=== PATIENT | male | born 1975 | race Caucasian/White ===

== ENCOUNTER 2024-02-20 14:23 | Observation (INO) ==
[2024-02-20 15:06] LABS: Appearance Urine Clear (Clear); Bilirubin Urine Negative (Negative); Blood Urine Negative (Negative); Color Urine Yellow; Glucose Urine UA 2+ (Negative); Ketones Urine Negative (Negative); Leukocyte Esterase Urine Negative (Negative); Nitrite Urine Negative (Negative); Protein Urine Negative (Negative); Specific Gravity Urine 1.008 (1.000-1.030); Urobilinogen Urine Negative (Negative); pH Urine 5.5 (4.5-7.5)
[2024-02-20 15:16] LABS: Basophils # (auto) 0.03 K/uL (0.00-0.20); Basophils % (auto) 0.3 %; Eosinophils # (auto) 0.03 K/uL (0.00-0.50); Eosinophils % (auto) 0.3 %; Hematocrit (blood only) 41.4 % (42.0-52.0); Hemoglobin 14.7 g/dl (14.0-18.0); Immature Granulocytes # (auto) 0.06 K/uL (0.01-0.20); Immature Granulocytes % (auto) 0.6 %; Lymphocytes # (auto) 1.19 K/uL (1.20-3.40); Lymphocytes % (auto) 12.5 %; Mean Corpuscular Hemoglobin 30.7 pg (25.0-34.0); Mean Corpuscular Hgb Conc 35.5 g/dL (32.0-36.0); Mean Corpuscular Volume 86.4 fL (80.0-100.0); Mean Platelet Volume 9.3 fL (9.4-12.4); Monocytes # (auto) 0.42 K/uL (0.11-0.59); Monocytes % (auto) 4.4 %; Neutrophils # (auto) 7.78 K/uL (1.40-6.50); Neutrophils % (auto) 81.9 %; Platelet Count 198 K/uL (130-400); RDW Coefficient of Variation 12.3 % (11.5-14.5); RDW Standard Deviation 38.9 fL (36.4-46.3); Red Blood Count 4.79 M/uL (4.70-6.10); White Blood Count 9.51 K/ul (4.8-10.8)
[2024-02-20 15:23] LABS: Albumin Globulin Ratio 2.5 (0.9-2); Albumin Level 4.7 gm/dl (3.4-5.0); BUN Creatinine Ratio 16.3 (10-20); Bilirubin,Total 0.8 mg/dl (0.2-1.0); Creatinine Clr Calc Pharmacy 70.9 ml/min; Globulin 1.9 gm/dl (2.5-4.0); Potassium 4.6 mmol/L (3.5-5.1); Total Protein 6.6 gm/dl (6.0-8.3)
[2024-02-20 15:29] LABS: Troponin I High Sensitivity 5.9 pg/ml (0-20)
--- NOTE | 2024-02-20 15:55 | Emergency Department Note ---
Impression & Plan Chest pain, Abnormal weight gain ED Provider Note NAME: BHAVYA MORALES AGE: 48 SEX: M : 1975 ARRIVES VIA: Walk-In INFORMANT: Patient, ED PROVIDER(S): Jett Don DO CHIEF COMPLAINT: Weight gain HPI: The patient is a 48-year-old male who presented to the emergency department for an evaluation of weight gain chest pain shortness of breath and abdominal distention. The patient states he has been having symptoms over the course the last several weeks. He has been seen at multiple other facilities and no answer was given. He is scheduled for a follow-up appoint with cardiology but that is not scheduled as of yet. The patient denies having any fever. He denies having any diarrhea or rectal bleeding. He denies having any recent trauma. ROS: See above HPI for pertinent positives & negatives. A total of 10 systems reviewed and were otherwise negative. PAST MEDICAL HISTORY: See Below PAST SURGICAL HISTORY: See Below FAMILY HISTORY: See Below SOCIAL HISTORY: See Below HOME MEDICATIONS: See Below ALLERGIES: See Below VITALS: See Below PHYSICAL EXAMINATION: GENERAL: Patient is awake alert in no acute distress patient is resting comfortably and showing no signs of anxiety EYES: The conjunctivae are clear. The pupils are round and reactive. EARS, NOSE, MOUTH AND THROAT: The nose is without any evidence of any deformity. NECK: The neck is nontender and supple. RESPIRATORY: Normal respiratory effort is noted there is no evidence of wheezing rhonchi or rales CARDIOVASCULAR: Regular rate and rhythm noted there no murmurs rubs or gallops normal S1 normal S2. GASTROINTESTINAL: The diminished soft and nondistended. There is diffuse tenderness to palpation but no guarding rigidity. MUSCULOSKELETAL/EXTREMITIES: There is no evidence of gross deformity full range of motion is noted in the hips and shoulders. SKIN: There is no obvious evidence of any rash. There are no petechiae, pallor or cyanosis noted. NEUROLOGIC: Patient is awake alert and oriented x3 MEDICAL DECISION MAKING: The patient is a 48-year-old male who presented to the emergency department for an evaluation of chest pain as well as weight gain. The patient's had ongoing symptoms for approximately 4 weeks. He has been seen at several emergency departments. He is never had a cardiac workup according to him. He also has been complaining of abdominal distention. I discussed the patient's laboratory and radiographic studies with him. I discussed his condition with the on-call [facility] hospitalist. Given the patient's comorbidities and risk factors he would not be a good candidate for outpatient workup for this chest pain. They have agreed to evaluate the patient in the emergency department for further management and disposition. Triage Nursing notes reviewed. Prior medical records reviewed Vital Signs: reviewed and remarkable for no significant abnormalities Differential diagnosis: Cardiac ischemia, aortic dissection, pulmonary embolism, pneumothorax, pneumonia, pericarditis, myocarditis, esophageal rupture, GERD, cholecystitis, pancreatitis, musculoskeletal, as well as other pathologies. ER treatment provided: See below Diagnostics interpreted by me: ECG: EKG was obtained in the emergency department. My interpretation is normal sinus rhythm at 76 bpm. There is no ectopy. There is no acute ST segment abnormalities noted. No previous tracing was available. Cardiac Monitoring: An order was placed for continuous cardiac monitoring. The monitor shows a rate of 74 bpm with sinus rhythm. Laboratory studies: As stated above and show below. Imaging studies: See below. Radiographic imaging was reviewed by myself Consultation(s): I discussed this case with Dr. Dumont who is on-call for the [facility] hospitalist group. Past Med/Surg History Problem List (Updated 02/20/24 @ 17:51 by Jett Don DO) Abnormal weight gain (Acute) Chest pain (Acute) Medical History (Updated 02/20/24 @ 17:51 by Jett Don DO) Hypertension High cholesterol Diabetes Chronic renal insufficiency Social History Smoking Status: Former smoker Preferred Language: [place] Feels Safe at Home: Yes Allergies Allergies Allergy/AdvReac Type Severity Reaction Status Date / Time adhesive tape Allergy Blister Verified 02/20/24 17:32 losartan Allergy Hives Verified 02/20/24 17:31 meloxicam [From Mobic] Allergy Hives Verified 02/20/24 17:30 metformin Allergy Hives Verified 02/20/24 17:31 Penicillins Allergy Anaphylaxis Verified 02/20/24 17:31 tramadol Allergy Hives Verified 02/20/24 17:31 Home Meds Home Medications Medication Instructions Recorded Confirmed atorvastatin 80 mg tablet 80 mg PO DAILY 02/20/24 bumetanide 1 mg tablet 1 mg PO UD PRN Other 02/20/24 bumetanide 2 mg tablet 2 mg PO BID 02/20/24 bupropion HCl 300 mg 24 hr tablet, 300 mg PO DAILY 02/20/24 extended release buspirone 5 mg tablet 5 mg PO DIRECTED 02/20/24 calcitriol 0.25 mcg capsule 0.25 mcg PO DAILY 02/20/24 cyanocobalamin (vitamin B-12) 1,000 mcg IM DIRECTED 02/20/24 1,000 mcg/mL injection solution doxycycline hyclate 100 mg tablet 100 mg PO BID 02/20/24 insulin degludec 100 unit/mL (3 30 unit subcut BID 02/20/24 mL) subcutaneous pen (Tresiba FlexTouch U-100 insulin) insulin glargine 100 unit/mL (3 50 unit subcut BID 02/20/24 mL) subcutaneous pen (Lantus Solostar U-100 Insulin) insulin lispro 100 unit/mL 1 sliding scale dose subcut TID 02/20/24 subcutaneous pen (Humalog KwikPen (U-100) Insulin) lamotrigine 200 mg tablet 200 mg PO DAILY 02/20/24 lurasidone 20 mg tablet (Latuda) 20 mg PO DAILY 02/20/24 metoprolol succinate 25 mg 25 mg PO DAILY 02/20/24 tablet,extended release 24 hr pantoprazole 40 mg tablet,delayed 40 mg PO DAILY 02/20/24 release prednisone 1 mg tablet 1 mg PO QAM 02/20/24 prednisone 10 mg tablet 10 mg PO QAM 02/20/24 spironolactone 25 mg tablet 25 mg PO DAILY 02/20/24 warfarin 5 mg tablet 5 mg PO DIRECTED 02/20/24 Results & Data (ED) Vital Signs Vital Signs - 24 hr 02/20/24 14:24 02/20/24 14:27 02/20/24 14:34 Temperature 36.7 C Temperature Source Temporal Artery Scan Pulse Rate 79 75 Pulse Rate [Apical] 75 Pulse Strength [Apical] Respiratory Rate 18 19 18 Respiratory Effort / Characteristics Non-Labored Spontaneous Non-Labored Spontaneous Respiratory Depth Normal Respiratory Pattern Regular Blood Pressure 154/81 H Blood Pressure [Left Arm] 133/84 Blood Pressure Mean 105 Blood Pressure Mean [Left Arm] 100 Blood Pressure Position Sitting Blood Pressure Position [Left Arm] Lying Pulse Oximetry 96 96 96 Oxygen Delivery Method Room Air Room Air Room Air Sepsis Recent Fever Within 48 Hours No Sepsis New/Unexplained Change in Mental Status No Sepsis Action Taken by Nursing No Action Required 02/20/24 16:13 02/20/24 16:24 02/20/24 17:32 Temperature Temperature Source Pulse Rate 77 Pulse Rate [Apical] 75 74 Pulse Strength [Apical] Normal Respiratory Rate 18 18 Respiratory Effort / Characteristics Non-Labored Spontaneous Non-Labored Spontaneous Respiratory Depth Normal Respiratory Pattern Regular Blood Pressure Blood Pressure [Left Arm] 128/76 144/76 H Blood Pressure Mean Blood Pressure Mean [Left Arm] 93 98 Blood Pressure Position Blood Pressure Position [Left Arm] Lying Sitting Pulse Oximetry 98 98 Oxygen Delivery Method Room Air Room Air Sepsis Recent Fever Within 48 Hours Sepsis New/Unexplained Change in Mental Status Sepsis Action Taken by [facility] Medications Current Medication List: was personally reviewed by me Laboratory Data Attestation: I reviewed the patient's lab results. 02/20/24 14:45 02/20/24 14:45 Lab Results 02/20/24 Range/Units 14:45 WBC 9.51 (4.8-10.8) K/ul RBC 4.79 (4.70-6.10) M/uL Hgb 14.7 (14.0-18.0) g/dl Hct 41.4 L (42.0-52.0) % MCV 86.4 (80.0-100.0) fL MCH 30.7 (25.0-34.0) pg MCHC 35.5 (32.0-36.0) g/dL RDW Std Deviation 38.9 (36.4-46.3) fL RDW Coeff of Juanjo 12.3 (11.5-14.5) % Plt Count 198 (130-400) K/uL MPV 9.3 L (9.4-12.4) fL Immature Gran % (Auto) 0.6 % Neut % (Auto) 81.9 % Lymph % (Auto) 12.5 % [place] % (Auto) 4.4 % Eos % (Auto) 0.3 % Baso % (Auto) 0.3 % Neut # (Auto) 7.78 H (1.40-6.50) K/uL Lymph # (Auto) 1.19 L (1.20-3.40) K/uL [place] # (Auto) 0.42 (0.11-0.59) K/uL Eos # (Auto) 0.03 (0.00-0.50) K/uL Baso # (Auto) 0.03 (0.00-0.20) K/uL Immature Gran # (Auto) 0.06 (0.01-0.20) K/uL Sodium 137 (136-145) mmol/L Potassium 4.6 (3.5-5.1) mmol/L Chloride 102 (98-107) mmol/L Carbon Dioxide 29 (21-32) mmol/L Anion Gap 6 (3-11) BUN 29 H (6-23) mg/dl Creatinine 1.78 H (0.6-1.4) mg/dl Est Cr Clr Drug Dosing 70.9 ml/min eGFR 46.48 BUN/Creatinine Ratio 16.3 (10-20) Glucose 299 H (70-99(Fasting)) mg/dl Calcium 10.0 (8.6-10.3) mg/dl Total Bilirubin 0.8 (0.2-1.0) mg/dl AST 15 (13-39) U/L ALT 24 (7-52) U/L Alkaline Phosphatase 57 (34-104) U/L Troponin I High Sens 5.9 (0-20) pg/ml Total Protein 6.6 (6.0-8.3) gm/dl Albumin 4.7 (3.4-5.0) gm/dl Globulin 1.9 L (2.5-4.0) gm/dl Albumin/Globulin Ratio 2.5 H (0.9-2) Lipase 31 (11-82) U/L Urine Color Yellow Urine Appearance Clear (Clear) Urine pH 5.5 (4.5-7.5) Ur Specific [place] 1.008 (1.000-1.030) Urine Protein Negative (Negative) Urine Glucose (UA) 2+ H (Negative) Urine Ketones Negative (Negative) Urine Blood Negative (Negative) Urine Nitrite Negative (Negative) Urine Bilirubin Negative (Negative) Urine Urobilinogen Negative (Negative) Ur Leukocyte Esterase Negative (Negative) Administered Medications Discontinued Medications Aspirin (Aspirin Chew 324 Mg) 324 mg PO NOW STA Stop: 02/20/24 17:21 Last Admin: 02/20/24 17:30 Dose: 324 mg Documented By: MERCEDES Imaging Data Attestation: I personally reviewed and interpreted this imaging study as follows: My Impression: CT of the abdomen and pelvis as well as CT of the chest were obtained. My interpretation is no free air or free fluid or definite infiltrate, final report below. 1 view chest x-ray was obtained in the emergency department. My interpretation is no free air or definite infiltrate, final report below. Radiologist's Impression: Chest X-Ray 02/20/24 14:34 EXAM: Radiograph of the Chest 1 View INDICATION: Chest pain. TECHNIQUE: Frontal view of the chest. COMPARISON: No relevant prior studies available. FINDINGS: Lungs and pleural spaces: No consolidation or pulmonary edema. No pleural effusion or pneumothorax. Heart: Shape and configuration within normal limits allowing for technique. Mediastinum: Normal contour. Bones/joints: No fracture, erosion or dislocation. Soft tissues: No abnormality noted. No radiopaque foreign body noted. Upper abdomen: No abnormality noted. IMPRESSION: No abnormality noted. ACT 112: Negative or not required by law. Electronically signed by Brittni James 02-20-2024 3:47 PM Abdomen/Pelvis CT 02/20/24 15:45 EXAM: CT abd pelvis wo con CLINICAL HISTORY: weight gain and pain TECHNIQUE: Non-contrast CT of the abdomen was performed, with the following protocol: axial images and reconstructed coronal and sagittal images were obtained. One of the following dose reduction techniques was utilized for this exam.Automated exposure control, adjustment of the mA and/or kV according to patient size, and use of iterative reconstruction. COMPARISON: No prior studies are available for comparison. FINDINGS: Liver: Normal in size, shape, and density. No focal lesions, cysts, or masses were identified. No evidence of hepatic steatosis or cirrhosis. Gallbladder and Biliary System: The gallbladder is normal in size and shape. No wall thickening, pericholecystic fluid, or gallstones were identified. Pancreas: Pancreatic head, body, and tail are visualized and appear normal in size and density. No pancreatic masses, cysts, or calcifications were noted. The main pancreatic duct is normal size and diameter without dilatation. Spleen: Normal in size, shape, and density. No splenic lesions or masses were identified. Kidneys and Adrenal Glands: Both kidneys are normal in size, shape, and position. Cortical thickness is within normal limits. No renal calculi or hydronephrosis. Adrenal glands are unremarkable. Appendix: The appendix is normal in size without eileen appendiceal fat stranding and without an appendicolith. No evidence of appendiceal abscess or perforation. Peritoneal and Retroperitoneal Structures: No free fluid or abnormal fluid collections were identified within the abdomen or pelvis. No lymphadenopathy was noted. Pelvis : Urinary Bladder: Normal in contour and wall thickness. No intraluminal lesions. Normal appearance of the prostate. No pelvic lymphadenopathy. Fecal-loaded colon. Unremarkable unprepared bowel loops. Bone : Degenerative changes of the spine. First-degree spondylolisthesis of L5 over S1 vertebrae with fracture of the related pars interarticularis. IMPRESSION: Overall, the CT abdomen and pelvis demonstrate normal findings without evidence of acute intra-abdominal pathology. Electronically signed by Yary Sanchez 02-20-2024 4:[address] 02/20/24 15:45 EXAM: CT chest diagnostic wo con CLINICAL HISTORY: weight gain and pain TECHNIQUE: Contiguous axial CT images of the chest were acquired without administration of intravenous contrast. Coronal and sagittal reconstructions were obtained. One of the following dose reduction techniques were utilized for this exam: Automated exposure control, adjustment of the mA and/or kV according to patient size, use of iterative reconstruction. COMPARISON: None. FINDINGS: Lungs: A lingular thin atelectatic band is seen. The lung parenchyma is clear with no evidence of consolidation, collapse, or focal lesions. No pulmonary nodules or masses are identified. No evidence of interstitial lung disease or emphysema. No pleural effusion or pleural thickening. Mediastinum: The mediastinum is normal in size and contour. No mediastinal mass or abnormal lymphadenopathy. The heart size is within normal limits. Coronary atherosclerotic changes were noted. Hilar Structures: The hilar structures appear normal without enlargement or abnormality. Trachea and Main Bronchi: The trachea and main bronchi are patent without evidence of obstruction or abnormality. Chest Wall: The chest wall is unremarkable with no evidence of soft tissue or bony abnormalities. Upper Abdomen: Visualized portions of the liver, spleen, adrenal glands, and kidneys are unremarkable. Bones: Moderate spondylosis of the thoracic spine is seen. Visualized osseous structures are normal, with no evidence of fracture or lytic/sclerotic lesions. IMPRESSION: 1. No acute cardiopulmonary abnormalities. 2. A lingular atelectatic band. 3. Coronary atherosclerotic changes. 4. Moderate spondylosis of the thoracic spine. Electronically signed by Yary Sanchez 02-20-2024 4:39 PM Discharge Plan Visit Data Chief Complaint: Swelling/Edema to Extremity Stated Complaint: BLOATED/ABD SWELLING, SOB, HEADACHE, 40LBS/4 WKS ED Provider: Jett Don Discharge Problem: Chest pain, Abnormal weight gain Patient Disposition: Being Evaluated by Hospitalist Forms Stand Alone Forms: My [facility] Prescriptions Prescriptions: No Action buspirone 5 mg tablet 5 mg PO DIRECTED atorvastatin 80 mg tablet 80 mg PO DAILY prednisone 10 mg tablet 10 mg PO QAM Rx Instructions: take with 1 mg for total dose of 11 mg daily lamotrigine 200 mg tablet 200 mg PO DAILY spironolactone 25 mg tablet 25 mg PO DAILY prednisone 1 mg tablet 1 mg PO QAM Rx Instructions: take with 10 mg for total dose of 11 mg daily pantoprazole 40 mg tablet,delayed release (DR/EC) 40 mg PO DAILY cyanocobalamin (vitamin B-12) 1,000 mcg/mL solution 1,000 mcg IM DIRECTED warfarin 5 mg tablet 5 mg PO DIRECTED metoprolol succinate 25 mg tablet extended release 24 hr 25 mg PO DAILY doxycycline hyclate 100 mg tablet 100 mg PO BID calcitriol 0.25 mcg capsule 0.25 mcg PO DAILY insulin lispro [Humalog KwikPen Insulin] 100 unit/mL insulin pen 1 sliding scale dose SUBCUT TID bupropion HCl 300 mg tablet extended release 24 hr 300 mg PO DAILY insulin glargine [Lantus Solostar U-100 Insulin] 100 unit/mL (3 mL) insulin pen 50 unit subcut BID lurasidone [Latuda] 20 mg tablet 20 mg PO DAILY insulin degludec [Tresiba FlexTouch U-100] 100 unit/mL (3 mL) insulin pen 30 unit SUBCUT BID bumetanide 2 mg tablet 2 mg PO BID bumetanide 1 mg tablet 1 mg PO UD PRN (Reason: Other) Rx Instructions: Take 1 tab po daily if needed along with 2 mg for total dose of 3 mg for 3 days Referrals Referrals: Ryann Wallace PA-C [Primary Care Provider] - Discharge Problem: Chest pain Qualifiers: Chest pain type: unspecified Qualified Code(s): R07.9 - Chest pain, unspecified
--- NOTE | 2024-02-20 16:39 | CT Scan Report ---
EXAM: CT abd pelvis wo con CLINICAL HISTORY: weight gain and pain TECHNIQUE: Non-contrast CT of the abdomen was performed, with the following protocol: axial images and reconstructed coronal and sagittal images were obtained. One of the following dose reduction techniques was utilized for this exam.Automated exposure control, adjustment of the mA and/or kV according to patient size, and use of iterative reconstruction. COMPARISON: No prior studies are available for comparison. FINDINGS: Liver: Normal in size, shape, and density. No focal lesions, cysts, or masses were identified. No evidence of hepatic steatosis or cirrhosis. Gallbladder and Biliary System: The gallbladder is normal in size and shape. No wall thickening, pericholecystic fluid, or gallstones were identified. Pancreas: Pancreatic head, body, and tail are visualized and appear normal in size and density. No pancreatic masses, cysts, or calcifications were noted. The main pancreatic duct is normal size and diameter without dilatation. Spleen: Normal in size, shape, and density. No splenic lesions or masses were identified. Kidneys and Adrenal Glands: Both kidneys are normal in size, shape, and position. Cortical thickness is within normal limits. No renal calculi or hydronephrosis. Adrenal glands are unremarkable. Appendix: The appendix is normal in size without eileen appendiceal fat stranding and without an appendicolith. No evidence of appendiceal abscess or perforation. Peritoneal and Retroperitoneal Structures: No free fluid or abnormal fluid collections were identified within the abdomen or pelvis. No lymphadenopathy was noted. Pelvis : Urinary Bladder: Normal in contour and wall thickness. No intraluminal lesions. Normal appearance of the prostate. No pelvic lymphadenopathy. Fecal-loaded colon. Unremarkable unprepared bowel loops. Bone : Degenerative changes of the spine. First-degree spondylolisthesis of L5 over S1 vertebrae with fracture of the related pars interarticularis. IMPRESSION: Overall, the CT abdomen and pelvis demonstrate normal findings without evidence of acute intra-abdominal pathology. Electronically signed by Yary Sanchez 02-20-2024 4:39 PM
--- NOTE | 2024-02-20 16:40 | CT Scan Report ---
EXAM: CT chest diagnostic wo con CLINICAL HISTORY: weight gain and pain TECHNIQUE: Contiguous axial CT images of the chest were acquired without administration of intravenous contrast. Coronal and sagittal reconstructions were obtained. One of the following dose reduction techniques were utilized for this exam: Automated exposure control, adjustment of the mA and/or kV according to patient size, use of iterative reconstruction. COMPARISON: None. FINDINGS: Lungs: A lingular thin atelectatic band is seen. The lung parenchyma is clear with no evidence of consolidation, collapse, or focal lesions. No pulmonary nodules or masses are identified. No evidence of interstitial lung disease or emphysema. No pleural effusion or pleural thickening. Mediastinum: The mediastinum is normal in size and contour. No mediastinal mass or abnormal lymphadenopathy. The heart size is within normal limits. Coronary atherosclerotic changes were noted. Hilar Structures: The hilar structures appear normal without enlargement or abnormality. Trachea and Main Bronchi: The trachea and main bronchi are patent without evidence of obstruction or abnormality. Chest Wall: The chest wall is unremarkable with no evidence of soft tissue or bony abnormalities. Upper Abdomen: Visualized portions of the liver, spleen, adrenal glands, and kidneys are unremarkable. Bones: Moderate spondylosis of the thoracic spine is seen. Visualized osseous structures are normal, with no evidence of fracture or lytic/sclerotic lesions. IMPRESSION: 1. No acute cardiopulmonary abnormalities. 2. A lingular atelectatic band. 3. Coronary atherosclerotic changes. 4. Moderate spondylosis of the thoracic spine. Electronically signed by Yary Sanchez 02-20-2024 4:39 PM
--- NOTE | 2024-02-20 17:14 | Electrocardiogram Report ---
Test Reason : Blood Pressure : */* mmHG Vent. Rate : 76 BPM Atrial Rate : 76 BPM P-R Int : 182 ms QRS Dur : 80 ms QT Int : 360 ms P-R-T Axes : 21 -8 49 degrees QTcB Int : 405 ms Normal sinus rhythm Normal ECG No previous ECGs available Confirmed by Patrick Altamirano ([id number]) on 02/20/2024 5:14:46 PM Referred By: REFERRED SELF Confirmed By: Patrick Altamirano
[2024-02-20] MEDS: ASPIRIN CHEW 324 MG PO STA (17:30)
[2024-02-20] MEDS ORDERED: PHARMACY GLYCEMIC MGMT CONSULT PRN (18:11)
[2024-02-20] MEDS ORDERED: CARBOHYDRATES FOR HYPOGLYCEMIA PO PRN (18:13)
[2024-02-20] MEDS ORDERED: GLUCAGON FOR INJ 1 MG VIAL SQ PRN (18:13)
[2024-02-20] MEDS ORDERED: DEXTROSE 50% 50 ML SYRINGE IV PRN (18:13)
[2024-02-20] MEDS ORDERED: GLUCOSE 10 TAB/TUBE PO PRN (18:13)
[2024-02-20] MEDS ORDERED: GLUCOSE 40% GEL 15 GM TUBE PO PRN (18:13)
--- NOTE | 2024-02-20 18:19 | History & Physical Report ---
Date of Service February 20, 2024 Assessment & Plan (1) Chest pain: (2) Hypertension: (3) Hyperlipidemia: (4) Insulin dependent type 2 diabetes mellitus: (5) CKD stage 3b, GFR 30-44 ml/min: (6) Rheumatoid arthritis: (7) Lupus anticoagulant disorder: (8) Morbid obesity with BMI of 40.0-44.9, adult: (9) Anxiety and depression: (10) Left foot drop: Plan 48-year-old male with past medical history of insulin-dependent type 2 diabetes mellitus, morbid obesity with BMI of 41, CKD stage III, hypertension, hyperlipidemia anxiety and depression, rheumatoid arthritis on prednisone, lupus anticoagulant with history of DVT on warfarin (as per patient he has failed apixaban and Xarelto in the past) who was brought in by his friend from [facility] for on and off chest pain for approximately 5 weeks mainly on exertion. #Chest pain #Essential hypertension #Hyperlipidemia CT chest did not show any evidence of fluid or infiltrate or consolidation Chest x-ray was unremarkable Admit to [facility] telemetry for observation Initial troponin was negative, admission EKG shows no ischemic changes with normal sinus rhythm Lipase is 31 BNP is 34 Telemetry monitoring Check 2D echo Check Lexiscan stress test Check bio fire since patient is reporting a chronic cough for 5 weeks which is dry in nature Patient is currently chest pain-free Continue metoprolol Continue statin Check lipid panel in a.m. Serial troponin #Insulin-dependent type 2 diabetes mellitus #Morbid obesity BMI is 41.1 Lifestyle counseling regarding diet, exercise and weight loss provided Patient is requesting dietitian consult: Dietitian consult placed Pharmacy consult for glycemic management Check A1c Monitor glycemic control #CKD stage IIIb Outpatient auto tech Dr. Eng Monitor renal function electrolytes Avoid nephrotoxic agents including NSAIDs #Rheumatoid arthritis #History of lupus anticoagulant with history of DVT Outpatient chick grader is Dr. Castro in [place], [place] Patient tells me he was on Humira in the past and failed Humira and plan for rheumatology is to start him on Enbrel soon Continue on CellCept and prednisone 11 mg daily Continue PPI while patient is on steroids Continue warfarin 5 mg daily: Monitor INR #Chronic left foot drop PT consult to help with ambulation: Patient states he has been struggling with ambulation on and off CODE STATUS: Discussed with patient, full code DVT prophylaxis: Patient on warfarin Care plan discussed with patient and patient's friend and her son updated at bedside with patient's permission. Patient requested for them to be in the room while I saw him and discussed his care plan. History of Present Illness Chief Complaint: Chest pain Primary Care Provider: Ryann Wallace PA-C 48-year-old male with past medical history of insulin-dependent type 2 diabetes mellitus, morbid obesity with BMI of 41, CKD stage III, hypertension, hyperlipidemia anxiety and depression, rheumatoid arthritis on prednisone, lupus anticoagulant with history of DVT on warfarin (as per patient he has failed apixaban and Xarelto in the past) who was brought in by his friend from [facility] for on and off chest pain for approximately 5 weeks. Patient states he is not getting good care in his local area and his friend drove him 85 miles to come here. 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 Patient states he is compliant with his medications. Medications were reviewed with the patient who has a list with him. He denies any headache, dizziness, lightheadedness, nausea, vomiting, diarrhea, abdominal pain, constipation issues. He has abdominal wall tenderness from coughing. He denies any urinary symptoms including dysuria. He denies any fever, chills. Patient reports a 40 pound weight gain in about a month. He admits to not watching what he eats. Patient tells me he is very compliant with his warfarin and his last INR few days ago was 2.9. Patient does admit that his A1c has been greater than 11 ED course: He had an EKG done which showed normal sinus rhythm, no ischemic changes noted. Troponin was 5.9. Creatinine of 1.78. Glucose of 299, urine analysis was negative. Patient had a CT of the chest which did not show any acute cardiopulmonary pathology. He also had a CT abdomen pelvis which was nega tive. Chest x-ray also was negative Patient was given aspirin 324 mg x 1 dose in ED Hospitalist service was called for admission for chest pain Social history: Patient lives by himself. He has a chronic left foot drop and he ambulates sometimes with a cane and has a brace on his left foot. He quit tobacco smoking in 2014. He drinks about 2 drinks of alcohol once a year. He denies any illegal or IV drug use. He is currently on disability. 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 Patient states his mother at the age of 67 from complications of coronary artery disease and also had a seizure disorder. Home medications: Reviewed with patient and are as follows Aspirin 81 mg p.o. daily Atorvastatin 40 mg p.o. daily Bumex 2 mg p.o. daily Bupropion XL 300 mg p.o. daily Cholecalciferol 5000 units p.o. daily Humalog subcutaneous 3 times a day before meals for 6 sliding scale Insulin glargine 50 units subcutaneous twice daily Lamictal 100 mg p.o. daily Metoprolol tartrate 100 mg p.o. daily CellCept 1 tablet p.o. daily Protonix 40 mg p.o. daily Prednisone 11 mg p.o. daily Warfarin 5 mg p.o. daily Allergies reviewed with patient: Tramadol, metformin, amlodipine, penicillin V, Mobic, Levaquin, tape, losartan Allergies Allergy/AdvReac Type Severity Reaction Status Date / Time adhesive tape Allergy Blister Verified 02/20/24 17:32 losartan Allergy Hives Verified 02/20/24 17:31 meloxicam [From Mobic] Allergy Hives Verified 02/20/24 17:30 metformin Allergy Hives Verified 02/20/24 17:31 Penicillins Allergy Anaphylaxis Verified 02/20/24 17:31 tramadol Allergy Hives Verified 02/20/24 17:31 Home Medications Medication Instructions Recorded Confirmed Type atorvastatin 80 mg tablet 80 mg PO DAILY 02/20/24 History bumetanide 1 mg tablet 1 mg PO UD PRN Other 02/20/24 History bumetanide 2 mg tablet 2 mg PO BID 02/20/24 History bupropion HCl 300 mg 24 hr tablet, 300 mg PO DAILY 02/20/24 History extended release buspirone 5 mg tablet 5 mg PO DIRECTED 02/20/24 History calcitriol 0.25 mcg capsule 0.25 mcg PO DAILY 02/20/24 History cyanocobalamin (vitamin B-12) 1,000 mcg IM DIRECTED 02/20/24 History 1,000 mcg/mL injection solution doxycycline hyclate 100 mg tablet 100 mg PO BID 02/20/24 History insulin degludec 100 unit/mL (3 30 unit subcut BID 02/20/24 History mL) subcutaneous pen (Tresiba FlexTouch U-100 insulin) insulin glargine 100 unit/mL (3 50 unit subcut BID 02/20/24 History mL) subcutaneous pen (Lantus Solostar U-100 Insulin) insulin lispro 100 unit/mL 1 sliding scale dose subcut TID 02/20/24 History subcutaneous pen (Humalog KwikPen (U-100) Insulin) lamotrigine 200 mg tablet 200 mg PO DAILY 02/20/24 History lurasidone 20 mg tablet (Latuda) 20 mg PO DAILY 02/20/24 History metoprolol succinate 25 mg 25 mg PO DAILY 02/20/24 History tablet,extended release 24 hr pantoprazole 40 mg tablet,delayed 40 mg PO DAILY 02/20/24 History release prednisone 1 mg tablet 1 mg PO QAM 02/20/24 History prednisone 10 mg tablet 10 mg PO QAM 02/20/24 History spironolactone 25 mg tablet 25 mg PO DAILY 02/20/24 History warfarin 5 mg tablet 5 mg PO DIRECTED 02/20/24 History Past Med/Surg History Problem List (Updated 02/20/24 @ 18:56 by Alvin Dumont MD) Left foot drop Hypertension Anxiety and depression Morbid obesity with BMI of 40.0-44.9, adult Lupus anticoagulant disorder Rheumatoid arthritis CKD stage 3b, GFR 30-44 ml/min Insulin dependent type 2 diabetes mellitus Hyperlipidemia Abnormal weight gain (Acute) Chest pain (Acute) Medical History (Updated 02/20/24 @ 18:56 by Alvin Dumont MD) High cholesterol Diabetes Chronic renal insufficiency Social History Smoking Status: Former smoker Preferred Language: Slovak Feels Safe at Home: Yes Review of Systems Review of Systems: All 12 systems were reviewed and are negative or stated in HPI Physical Exam Physical Exam: General: No acute distress, talking in full sentences Psych: Awake and alert, oriented to place person and time HEENT: Anicteric sclera, moist oral mucosa CVS: Regular rate and rhythm, no murmurs audible Lungs: Bilateral air entry, no wheezing noted, no use of accessory muscles noted Abdomen: Soft, nontender, obese, no rebound, no guarding Ext: No lower extremity edema, no calf tenderness, bilateral lower extremity chronic skin changes noted Neuro: No focal motor deficits noted Results & Data Results & Data Vital Signs (Past 12 Hours) Vital Signs Temp Pulse Pulse Resp BP BP Pulse Ox 02/20/24 17:32 74 18 144/76 H 98 02/20/24 16:24 75 18 128/76 98 02/20/24 16:13 77 02/20/24 14:34 75 18 96 02/20/24 14:27 36.7 C 79 19 154/81 H 96 02/20/24 14:24 75 18 133/84 96 O2 Del Method 02/20/24 17:32 Room Air 02/20/24 16:24 Room Air 02/20/24 16:13 02/20/24 14:34 Room Air 02/20/24 14:27 Room Air 02/20/24 14:24 Room Air Laboratory Results Laboratory Results - last 24 hr 02/20/24 14:45 WBC 9.51 RBC 4.79 Hgb 14.7 Hct 41.4 L MCV 86.4 MCH 30.7 MCHC 35.5 RDW Std Deviation 38.9 RDW Coeff of Juanjo 12.3 Plt Count 198 MPV 9.3 L Immature Gran % (Auto) 0.6 Neut % (Auto) 81.9 Lymph % (Auto) 12.5 Mathews % (Auto) 4.4 Eos % (Auto) 0.3 Baso % (Auto) 0.3 Neut # (Auto) 7.78 H Lymph # (Auto) 1.19 L Mathews # (Auto) 0.42 Eos # (Auto) 0.03 Baso # (Auto) 0.03 Immature Gran # (Auto) 0.06 Sodium 137 Potassium 4.6 Chloride 102 Carbon Dioxide 29 Anion Gap 6 BUN 29 H Creatinine 1.78 H Est Cr Clr Drug Dosing 70.9 eGFR 46.48 BUN/Creatinine Ratio 16.3 Glucose 299 H Calcium 10.0 Total Bilirubin 0.8 AST 15 ALT 24 Alkaline Phosphatase 57 Troponin I High Sens 5.9 B-Natriuretic Peptide 34 Total Protein 6.6 Albumin 4.7 Globulin 1.9 L Albumin/Globulin Ratio 2.5 H Lipase 31 Urine Color Yellow Urine Appearance Clear Urine pH 5.5 Ur Specific [place] 1.008 Urine Protein Negative Urine Glucose (UA) 2+ H Urine Ketones Negative Urine Blood Negative Urine Nitrite Negative Urine Bilirubin Negative Urine Urobilinogen Negative Ur Leukocyte Esterase Negative Diagnostic Findings Chest X-Ray 02/20/24 14:34 EXAM: Radiograph of the Chest 1 View INDICATION: Chest pain. TECHNIQUE: Frontal view of the chest. COMPARISON: No relevant prior studies available. FINDINGS: Lungs and pleural spaces: No consolidation or pulmonary edema. No pleural effusion or pneumothorax. Heart: Shape and configuration within normal limits allowing for technique. Mediastinum: Normal contour. Bones/joints: No fracture, erosion or dislocation. Soft tissues: No abnormality noted. No radiopaque foreign body noted. Upper abdomen: No abnormality noted. IMPRESSION: No abnormality noted. ACT 112: Negative or not required by law. Electronically signed by Brittni James 02-20-2024 3:47 PM Abdomen/Pelvis CT 02/20/24 15:45 EXAM: CT abd pelvis wo con CLINICAL HISTORY: weight gain and pain TECHNIQUE: Non-contrast CT of the abdomen was performed, with the following protocol: axial images and reconstructed coronal and sagittal images were obtained. One of the following dose reduction techniques was utilized for this exam.Automated exposure control, adjustment of the mA and/or kV according to patient size, and use of iterative reconstruction. COMPARISON: No prior studies are available for comparison. FINDINGS: Liver: Normal in size, shape, and density. No focal lesions, cysts, or masses were identified. No evidence of hepatic steatosis or cirrhosis. Gallbladder and Biliary System: The gallbladder is normal in size and shape. No wall thickening, pericholecystic fluid, or gallstones were identified. Pancreas: Pancreatic head, body, and tail are visualized and appear normal in size and density. No pancreatic masses, cysts, or calcifications were noted. The main pancreatic duct is normal size and diameter without dilatation. Spleen: Normal in size, shape, and density. No splenic lesions or masses were identified. Kidneys and Adrenal Glands: Both kidneys are normal in size, shape, and position. Cortical thickness is within normal limits. No renal calculi or hydronephrosis. Adrenal glands are unremarkable. Appendix: The appendix is normal in size without eileen appendiceal fat stranding and without an appendicolith. No evidence of appendiceal abscess or perforation. Peritoneal and Retroperitoneal Structures: No free fluid or abnormal fluid collections were identified within the abdomen or pelvis. No lymphadenopathy was noted. Pelvis : Urinary Bladder: Normal in contour and wall thickness. No intraluminal lesions. Normal appearance of the prostate. No pelvic lymphadenopathy. Fecal-loaded colon. Unremarkable unprepared bowel loops. Bone : Degenerative changes of the spine. First-degree spondylolisthesis of L5 over S1 vertebrae with fracture of the related pars interarticularis. IMPRESSION: Overall, the CT abdomen and pelvis demonstrate normal findings without evidence of acute intra-abdominal pathology. Electronically signed by Yary Sanchez 02-20-2024 4:[address] 02/20/24 15:45 EXAM: CT chest diagnostic wo con CLINICAL HISTORY: weight gain and pain TECHNIQUE: Contiguous axial CT images of the chest were acquired without administration of intravenous contrast. Coronal and sagittal reconstructions were obtained. One of the following dose reduction techniques were utilized for this exam: Automated exposure control, adjustment of the mA and/or kV according to patient size, use of iterative reconstruction. COMPARISON: None. FINDINGS: Lungs: A lingular thin atelectatic band is seen. The lung parenchyma is clear with no evidence of consolidation, collapse, or focal lesions. No pulmonary nodules or masses are identified. No evidence of interstitial lung disease or emphysema. No pleural effusion or pleural thickening. Mediastinum: The mediastinum is normal in size and contour. No mediastinal mass or abnormal lymphadenopathy. The heart size is within normal limits. Coronary atherosclerotic changes were noted. Hilar Structures: The hilar structures appear normal without enlargement or abnormality. Trachea and Main Bronchi: The trachea and main bronchi are patent without evidence of obstruction or abnormality. Chest Wall: The chest wall is unremarkable with no evidence of soft tissue or bony abnormalities. Upper Abdomen: Visualized portions of the liver, spleen, adrenal glands, and kidneys are unremarkable. Bones: Moderate spondylosis of the thoracic spine is seen. Visualized osseous structures are normal, with no evidence of fracture or lytic/sclerotic lesions. IMPRESSION: 1. No acute cardiopulmonary abnormalities. 2. A lingular atelectatic band. 3. Coronary atherosclerotic changes. 4. Moderate spondylosis of the thoracic spine. Electronically signed by Yary Sanchez 02-20-2024 4:39 PM ECG Additional Comments: EKG reviewed: Normal sinus rhythm at 71 bpm, no ischemic changes noted PG Care Time/CCT Total # of Minutes Spent Total Time Spent with Patient: Total time spent is greater than 50% in coordination of care (as documented) at patient's floor/unit and/or counseling patient: Coding Level of Care Code 99509 INT INP/OBS CARE 3/75MIN Diagnoses Chest pain R07.9 Chest pain type: unspecified Hypertension I10 Hyperlipidemia E78.5 Insulin dependent type 2 diabetes mellitus E11.9; Z79.4 CKD stage 3b, GFR 30-44 ml/min N18.32 Rheumatoid arthritis M06.9 Lupus anticoagulant disorder D68.62 Morbid obesity with BMI of 40.0-44.9, adult E66.01; Z68.41 Anxiety and depression F41.9; F32.A Left foot drop M21.372 (1) Chest pain Chest pain type: unspecified Qualified Code(s): R07.9 - Chest pain, unspecified
[2024-02-20] MEDS: INSULIN ASPART PER UNIT CHARGE SC SCH (18:56)
[2024-02-20 19:21] LABS: INR 1.2 (0.9-1.1); Prothrombin Time 13.1 Seconds (9.0-12.0)
[2024-02-20 19:26] LABS: Adenovirus PCR Not Detected (NotDetected); Bordetella parapertussis PCR Not Detected (NotDetected); Bordetella pertussis PCR Not Detected (NotDetected); Chlamydia pneumoniae PCR Not Detected (NotDetected); Coronavirus 229E PCR Not Detected (NotDetected); Coronavirus CoV-2 (COVID19)PCR Not Detected (NotDetected); Coronavirus HKU1 PCR Not Detected (NotDetected); Coronavirus NL63 PCR Not Detected (NotDetected); Coronavirus OC43PCR Not Detected (NotDetected); Human Metapneumovirus PCR Not Detected (NotDetected); Influenza A PCR Not Detected (NotDetected); Influenza B PCR Not Detected (NotDetected); Mycoplasma pneumoniae PCR Not Detected (NotDetected); Parainfluenza Virus 1 PCR Not Detected (NotDetected); Parainfluenza Virus 2 PCR Not Detected (NotDetected); Parainfluenza Virus 3 PCR Not Detected (NotDetected); Parainfluenza Virus 4 PCR Not Detected (NotDetected); Respiratory Syncytial VirusPCR Not Detected (NotDetected); Rhinovirus/Enterovirus PCR Not Detected (NotDetected)
[2024-02-20] MEDS ORDERED: ACETAMINOPHEN 325 MG TAB PO PRN (20:33)
[2024-02-20] MEDS ORDERED: POLYETHYLENE (MIRALAX) 17 GM PACK PO PRN (20:33)
[2024-02-20] MEDS: LANTUS PER UNIT CHARGE SQ SCH (20:52)
[2024-02-21] MEDS: INSULIN ASPART PER UNIT CHARGE SC SCH (02:45)
[2024-02-21] MEDS: PANTOprazole 40 MG TAB PO SCH (06:25)
[2024-02-21 06:27] LABS: Hematocrit (blood only) 37.8 % (42.0-52.0); Hemoglobin 13.2 g/dl (14.0-18.0); Mean Corpuscular Hemoglobin 30.3 pg (25.0-34.0); Mean Corpuscular Hgb Conc 34.9 g/dL (32.0-36.0); Mean Corpuscular Volume 86.7 fL (80.0-100.0); Platelet Count 159 K/uL (130-400); RDW Coefficient of Variation 12.5 % (11.5-14.5); RDW Standard Deviation 39.6 fL (36.4-46.3); Red Blood Count 4.36 M/uL (4.70-6.10); White Blood Count 7.54 K/ul (4.8-10.8)
[2024-02-21 06:44] LABS: BUN Creatinine Ratio 18.8 (10-20); Calcium 8.7 mg/dl (8.6-10.3); Chol HDL Ratio 2.9 (0-5); Creatinine Clr Calc Pharmacy 84.4 ml/min; Potassium 3.9 mmol/L (3.5-5.1)
[2024-02-21 06:53] LABS: INR 1.3 (0.9-1.1); Prothrombin Time 13.4 Seconds (9.0-12.0)
[2024-02-21 08:08] LABS: Estimated Average Glucose 243 mg/dl; Hemoglobin A1C 10.1 % (4.5-5.6)
[2024-02-21] MEDS: METOPROLOL SUCC 50MG EXT REL TAB PO SCH (09:19)
[2024-02-21] MEDS: ATORVASTATIN 40 MG TAB PO SCH (09:19)
[2024-02-21] MEDS: ASPIRIN 81 MG ECTAB PO SCH (09:19)
[2024-02-21] MEDS: buPROPion XL 300 MG TABCR PO SCH (09:19)
[2024-02-21] MEDS: lamoTRIgine 100 MG TAB PO SCH (09:19)
[2024-02-21] MEDS: MYCOPHENOLATE MOFETIL 250 MG CAP PO SCH (09:20)
[2024-02-21] MEDS: predniSONE 10 MG TABLET PO SCH (09:20)
[2024-02-21] MEDS: predniSONE 1 MG TAB PO SCH (09:20)
--- NOTE | 2024-02-21 14:46 | Pharmacy Report ---
Pharmacy Glycemic Short Note 2 - Date of Service February 21, 2024 - Glycemic Short BSG Results (Last 24 hours): 02/20/24 02/20/24 02/20/24 14:45 18:22 20:42 Glucose 299 H POC Glucose 216 H 203 H 02/21/24 02/21/24 02/21/24 06:03 08:53 14:34 Glucose 121 H POC Glucose 106 H 129 H OUTPATIENT ANTIDIABETIC REGIMEN: * Lantus 50 units SC BID * Humalog 6-12 units SC TIDM HbA1c: 10.1% (02/21/24) ASSESSMENT: * RY is a 48 year old male who presented to ED on 02/19 w/ chest pain x 5 weeks on exertion * NPO this morning for stress test. Diet ordered this afternoon. * Blood sugars elevated on presentation, but much improved today w/ 25 units of basal last evening * Will use scaled dose of basal today given uncertainty in insulin needs PLAN FOR INPATIENT GLYCEMIC CONTROL: * Hold outpatient oral diabetes medications * Basal insulin * Lantus 25 units SC x 1 in AM * Lantus 0-10-20 units SC x 1 this evening * Reassess in AM * Bolus insulin * NovoLog per scale ACHS or Q6hrs while NPO * Goal Range: Low 110 mg/dL - High 140 mg/dL * Correction Factor: 20 mg/dL/unit * Nutritional / Prandial insulin per carb ratio of 1 unit per 6 grams CHO consumed
[2024-02-21] MEDS: INSULIN ASPART PER UNIT CHARGE SC ONE (14:54)
[2024-02-21] MEDS: LANTUS PER UNIT CHARGE SQ ONE ×2 (14:57→20:40)
--- NOTE | 2024-02-21 15:41 | Hospitalist Progress Note ---
Date of Service February 21, 2024 Assessment & Plan (1) Chest pain: (2) Hypertension: (3) Hyperlipidemia: (4) Insulin dependent type 2 diabetes mellitus: (5) CKD stage 3b, GFR 30-44 ml/min: (6) Rheumatoid arthritis: (7) Lupus anticoagulant disorder: (8) Morbid obesity with BMI of 40.0-44.9, adult: (9) Anxiety and depression: (10) Left foot drop: Plan 48-year-old male with past medical history of insulin-dependent type 2 diabetes mellitus, morbid obesity with BMI of 41, CKD stage III, hypertension, hyperlipidemia anxiety and depression, rheumatoid arthritis on prednisone, lupus anticoagulant with history of DVT on warfarin (as per patient he has failed apixaban and Xarelto in the past) who was brought in by his friend from [facility] for on and off chest pain for approximately 5 weeks mainly on exertion. #Chest pain #Essential hypertension #Hyperlipidemia CT chest did not show any evidence of fluid or infiltrate or consolidation Chest x-ray was unremarkable admission EKG shows no ischemic changes with normal sinus rhythm Telemetry shows sinus rhythm, no arrhythmias Troponin has been negative x 3 Lipase is 31 BNP is 34 Bio fire is negative 2D echo done: Results pending Lexiscan stress test done: Results pending Continue metoprolol Continue statin Continue Bumex 2 mg p.o. daily #Insulin-dependent type 2 diabetes mellitus #Morbid obesity BMI is 41.1 A1c is 10.1 Lifestyle counseling regarding diet, exercise and weight loss provided Patient is currently meeting with a dietitian Pharmacy consult for glycemic management Monitor glycemic control #CKD stage IIIb Outpatient property master Dr. Eng Monitor renal function electrolytes Avoid nephrotoxic agents including NSAIDs #Rheumatoid arthritis #History of lupus anticoagulant with history of DVT Outpatient supervisor asphalt paving is Dr. Castro in [place], [place] Patient tells me he was on Humira in the past and failed Humira and plan for rheumatology is to start him on Enbrel soon Continue on CellCept and prednisone 11 mg daily Continue PPI while patient is on steroids INR is 1.3: Patient states he is compliant with warfarin but his INR does fluctuate all over the place. Patient tells me he is in the process of having conversations with heme-onc in his local area and they are looking at possibly switching him back to apixaban although patient tells me that he did fail apixaban in the past Patient is not comfortable doing Lovenox injections and given his kidney dysfunction he is agreeable to heparin infusion until INR is therapeutic Start heparin infusion: Risk discussed with patient including risk of bleeding #Chronic left foot drop PT consult to help with ambulation: Patient states he has been struggling with a mbulation on and off CODE STATUS: Discussed with patient, full code DVT prophylaxis: Patient on warfarin and heparin infusion started Care plan discussed with patient and patient's friend Sarah updated on the phone with patient's permission Admission and Anticipated Discharge Date Admission Date: February 20, 2024 Subjective Patient seen and examined Patient had a stress test and echo: Results pending Still has intermittent chest pain, no shortness of breath, cough is improved Denies any nausea, vomiting, diarrhea, abdominal pain He is currently meeting with a dietitian for diet advice His friend Sarah is on the phone listening and with patient's permission Physical Exam Physical Exam: General: No acute distress, talking in full sentences Psych: Awake and alert, oriented to place person and time HEENT: Anicteric sclera, moist oral mucosa CVS: Regular rate and rhythm, no murmurs audible Lungs: Bilateral air entry, no wheezing noted, no use of accessory muscles noted Abdomen: Soft, nontender, obese, no rebound, no guarding Ext: No lower extremity edema, no calf tenderness, bilateral lower extremity chronic skin changes noted Neuro: No focal motor deficits noted Results & Data Results & Data Vital Signs (Past 12 Hours) Vital Signs Temp Pulse Pulse Resp BP Pulse Ox O2 Del Method 02/21/24 11:36 36.7 C 69 19 123/82 96 Room Air 02/21/24 07:34 36.6 C 75 19 128/85 96 Room Air 02/21/24 07:25 Room Air 02/21/24 05:51 71 Laboratory Results Laboratory Results - last 24 hr 02/20/24 02/20/24 02/20/24 14:45 18:22 18:23 WBC RBC Hgb Hct MCV MCH MCHC RDW Std Deviation RDW Coeff of Juanjo Plt Count MPV PT 13.1 H INR 1.2 H Sodium Potassium Chloride Carbon Dioxide Anion Gap BUN Creatinine Est Cr Clr Drug Dosing eGFR BUN/Creatinine Ratio Glucose POC Glucose 216 H Estimat Average Glucose Hemoglobin A1c Calcium Magnesium Troponin I High Sens B-Natriuretic Peptide 34 Triglycerides Cholesterol LDL Cholesterol, Calc VLDL Cholesterol, Calc HDL Cholesterol Cholesterol/HDL Ratio Vitamin B12 Adenovirus (PCR) Not Detected B. pertussis DNA (PCR) Not Detected B.parapertussis DNA PCR Not Detected C. pneumoniae DNA (PCR) Not Detected Coronavirus OC43 (PCR) Not Detected Coronavirus HKU1 (PCR) Not Detected Coronavirus 229E (PCR) Not Detected SARS-CoV-2 (PCR) Not Detected Coronavirus NL63 (PCR) Not Detected Human Metapneumovir PCR Not Detected Influenza Type A (PCR) Not Detected Influenza Type B (PCR) Not Detected M. pneumoniae (PCR) Not Detected Parainfluenza 1 (PCR) Not Detected Parainfluenza 2 (PCR) Not Detected Parainfluenza 3 (PCR) Not Detected Parainfluenza 4 (PCR) Not Detected RSV (PCR) Not Detected Entero/Rhino (PCR) Not Detected 02/20/24 02/20/24 02/21/24 18:24 20:42 02:33 WBC RBC Hgb Hct MCV MCH MCHC RDW Std Deviation RDW Coeff of Juanjo Plt Count MPV PT INR Sodium Potassium Chloride Carbon Dioxide Anion Gap BUN Creatinine Est Cr Clr Drug Dosing eGFR BUN/Creatinine Ratio Glucose POC Glucose 203 H Estimat Average Glucose Hemoglobin A1c Calcium Magnesium Troponin I High Sens 8.4 4.5 B-Natriuretic Peptide Triglycerides Cholesterol LDL Cholesterol, Calc VLDL Cholesterol, Calc HDL Cholesterol Cholesterol/HDL Ratio Vitamin B12 Adenovirus (PCR) B. pertussis DNA (PCR) B.parapertussis DNA PCR C. pneumoniae DNA (PCR) Coronavirus OC43 (PCR) Coronavirus HKU1 (PCR) Coronavirus 229E (PCR) SARS-CoV-2 (PCR) Coronavirus NL63 (PCR) Human Metapneumovir PCR Influenza Type A (PCR) Influenza Type B (PCR) M. pneumoniae (PCR) Parainfluenza 1 (PCR) Parainfluenza 2 (PCR) Parainfluenza 3 (PCR) Parainfluenza 4 (PCR) RSV (PCR) Entero/Rhino (PCR) 02/21/24 02/21/24 02/21/24 04:44 05:22 06:03 WBC 7.54 RBC 4.36 L Hgb 13.2 L Hct 37.8 L MCV 86.7 MCH 30.3 MCHC 34.9 RDW Std Deviation 39.6 RDW Coeff of Juanjo 12.5 Plt Count 159 MPV 9.0 L PT 13.4 H INR 1.3 H Sodium 143 Potassium 3.9 Chloride 109 H Carbon Dioxide 27 Anion Gap 7 BUN 28 H Creatinine 1.49 H Est Cr Clr Drug Dosing 84.4 eGFR 57.53 BUN/Creatinine Ratio 18.8 Glucose 121 H POC Glucose Estimat Average Glucose 243 Hemoglobin A1c 10.1 H Calcium 8.7 Magnesium 2.0 Troponin I High Sens B-Natriuretic Peptide Triglycerides 158 H Cholesterol 151 LDL Cholesterol, Calc 67 VLDL Cholesterol, Calc 32 H HDL Cholesterol 52 Cholesterol/HDL Ratio 2.9 Vitamin B12 424 Adenovirus (PCR) B. pertussis DNA (PCR) B.parapertussis DNA PCR C. pneumoniae DNA (PCR) Coronavirus OC43 (PCR) Coronavirus HKU1 (PCR) Coronavirus 229E (PCR) SARS-CoV-2 (PCR) Coronavirus NL63 (PCR) Human Metapneumovir PCR Influenza Type A (PCR) Influenza Type B (PCR) M. pneumoniae (PCR) Parainfluenza 1 (PCR) Parainfluenza 2 (PCR) Parainfluenza 3 (PCR) Parainfluenza 4 (PCR) RSV (PCR) Entero/Rhino (PCR) 02/21/24 02/21/24 08:53 14:34 WBC RBC Hgb Hct MCV MCH MCHC RDW Std Deviation RDW Coeff of Juanjo Plt Count MPV PT INR Sodium Potassium Chloride Carbon Dioxide Anion Gap BUN Creatinine Est Cr Clr Drug Dosing eGFR BUN/Creatinine Ratio Glucose POC Glucose 106 H 129 H Estimat Average Glucose Hemoglobin A1c Calcium Magnesium Troponin I High Sens B-Natriuretic Peptide Triglycerides Cholesterol LDL Cholesterol, Calc VLDL Cholesterol, Calc HDL Cholesterol Cholesterol/HDL Ratio Vitamin B12 Adenovirus (PCR) B. pertussis DNA (PCR) B.parapertussis DNA PCR C. pneumoniae DNA (PCR) Coronavirus OC43 (PCR) Coronavirus HKU1 (PCR) Coronavirus 229E (PCR) SARS-CoV-2 (PCR) Coronavirus NL63 (PCR) Human Metapneumovir PCR Influenza Type A (PCR) Influenza Type B (PCR) M. pneumoniae (PCR) Parainfluenza 1 (PCR) Parainfluenza 2 (PCR) Parainfluenza 3 (PCR) Parainfluenza 4 (PCR) RSV (PCR) Entero/Rhino (PCR) PG Care Time/CCT Total # of Minutes Spent Total Time Spent with Patient: Total time spent is greater than 50% in coordination of care (as documented) at patient's floor/unit and/or counseling patient: Coding Level of Care Code 74341 SUB INP/OBS CARE 3/50MIN Diagnoses Chest pain R07.9 Chest pain type: unspecified Hypertension I10 Hyperlipidemia E78.5 Insulin dependent type 2 diabetes mellitus E11.9; Z79.4 CKD stage 3b, GFR 30-44 ml/min N18.32 Rheumatoid arthritis M06.9 Lupus anticoagulant disorder D68.62 Morbid obesity with BMI of 40.0-44.9, adult E66.01; Z68.41 Anxiety and depression F41.9; F32.A Left foot drop M21.372 (1) Chest pain Chest pain type: unspecified Qualified Code(s): R07.9 - Chest pain, unspecified
[2024-02-21] MEDS ORDERED: Heparin IV Adult Wt-Based Standard *NO* INITIAL Bolus Protocol IV STA (15:44)
[2024-02-21] MEDS: ALBUT/IPRATROP 3MG/0.5MG NEB 3 ML VIAL ONE (15:47)
[2024-02-21] MEDS ORDERED: WARFARIN SOD 5 MG TAB PO SCH (16:00)
--- NOTE | 2024-02-21 16:19 | Myocardial Perfusion Study ---
Date of Service February 21, 2024 Myocardial Perfusion Study Blk Myocardial Perfusion Study Report LEXISCAN STRESS MYOCARDIAL PERFUSION IMAGING STUDY Indication: Chest pain Brief description: Rest portion-at 11:27 AM the patient was injected with 10.3 mCi of technetium 99m Cardiolite IV. 1 hour following injection, myocardial perfusion imaging was performed in multiple projections. Stress portion-baseline heart rate, blood pressure, and EKG were obtained. These same parameters were monitored continuously for 3 minutes of infusion and 3 minutes recovery. They were intermittently recorded. Patient was infused with 0.4 mg of Lexiscan IV followed immediately by the injection of 31.9 mCi of technetium 99 M Cardiolite IV. 30 minutes following injection, myocardial perfusion imaging was performed in multiple projections similar to those utilized for the rest portion. Patient reported headache, chest discomfort, nausea, and dyspnea with Lexiscan infusion. Hemodynamic and electrocardiographic findings: 1. Resting heart rate was 70 bpm and [place] to a maximum of 85 bpm with Lexiscan infusion. 2. Blood pressure was 109/65 mmHg at rest and [place]in to a maximum of 118/61 mmHg with Lexiscan infusion. 3. Baseline EKG demonstrated normal sinus rhythm. There were no diagnostic ischemic ST segment or T wave changes with Lexiscan infusion. No Lexiscan induced arrhythmia. Myocardial perfusion imaging findings: 1. Raw data analysis demonstrates mild soft tissue attenuation from obesity. This is an adequate quality study for interpretation. 2. Gated myocardial perfusion imaging demonstrates borderline enlargement of the left ventricle, normal wall motion, and normal EF calculated at 59%. 3. There are no significant myocardial perfusion defects. No evidence of myocardial ischemia or infarction. 4. This is considered a low risk myocardial perfusion stress test. No prior studies for comparison. [facility] [place] Myocardial perfusion code Indication for Procedure (1) Chest pain: Procedure Code Procedure 1: Myocardial Perfusion Codes: 92170 Cardiovascular Stress Test, multiple Procedure 2: Myocardial Perfusion Codes: 06796 Cardiovascular Stress Test, supervision only Procedure 3: Myocardial Perfusion Codes: 66739 Cardiovascular Stress Test, interpre tation and report
[2024-02-21 16:39] LABS: Hematocrit (blood only) 39.5 % (42.0-52.0); Hemoglobin 13.9 g/dl (14.0-18.0); Mean Corpuscular Hemoglobin 30.7 pg (25.0-34.0); Mean Corpuscular Hgb Conc 35.2 g/dL (32.0-36.0); Mean Corpuscular Volume 87.2 fL (80.0-100.0); Platelet Count 161 K/uL (130-400); RDW Coefficient of Variation 12.6 % (11.5-14.5); Red Blood Count 4.53 M/uL (4.70-6.10); White Blood Count 7.23 K/ul (4.8-10.8)
[2024-02-21 16:40] LABS: Basophils # (auto) 0.02 K/uL (0.00-0.20); Basophils % (auto) 0.3 %; Eosinophils # (auto) 0.02 K/uL (0.00-0.50); Eosinophils % (auto) 0.3 %; Immature Granulocytes # (auto) 0.03 K/uL (0.01-0.20); Immature Granulocytes % (auto) 0.4 %; Lymphocytes # (auto) 1.63 K/uL (1.20-3.40); Lymphocytes % (auto) 22.5 %; Mean Platelet Volume 9.2 fL (9.4-12.4); Monocytes # (auto) 0.38 K/uL (0.11-0.59); Monocytes % (auto) 5.3 %; Neutrophils # (auto) 5.15 K/uL (1.40-6.50); Neutrophils % (auto) 71.2 %
[2024-02-21] MEDS: WARFARIN SOD 10 MG TAB PO SCH (16:47)
[2024-02-21] MEDS: CYANOCOBALAMIN 1000 MCG/ML VIAL IM SCH (16:53)
[2024-02-21 17:02] LABS: INR 1.3 (0.9-1.1); Partial Thromboplastin Ratio 0.9; Partial Thromboplastin Time 25 Seconds (21-31); Prothrombin Time 13.8 Seconds (9.0-12.0)
[2024-02-21] MEDS: HEPARIN SODIUM/DEXTROSE 25,000 UNITS/500 ML BAG IV SCH (17:21)
[2024-02-21] MEDS: REGADENOSON 0.4 MG/5 ML SYR IV ONE (17:23)
--- NOTE | 2024-02-21 18:00 | XCELERA ---
[id number]
[2024-02-22 06:33] LABS: Hematocrit (blood only) 38.8 % (42.0-52.0); Hemoglobin 13.4 g/dl (14.0-18.0); Mean Corpuscular Hemoglobin 30.2 pg (25.0-34.0); Mean Corpuscular Hgb Conc 34.5 g/dL (32.0-36.0); Mean Corpuscular Volume 87.4 fL (80.0-100.0); Platelet Count 147 K/uL (130-400); RDW Coefficient of Variation 12.4 % (11.5-14.5); RDW Standard Deviation 39.8 fL (36.4-46.3); Red Blood Count 4.44 M/uL (4.70-6.10)
[2024-02-22 06:53] LABS: Calcium 8.7 mg/dl (8.6-10.3); Creatinine Clr Calc Pharmacy 81.9 ml/min; Magnesium 2.2 mg/dl (1.7-2.4); Potassium 3.9 mmol/L (3.5-5.1)
[2024-02-22 07:19] LABS: INR 1.4 (0.9-1.1); Prothrombin Time 14.6 Seconds (9.0-12.0)
[2024-02-22 07:55] LABS: ANTI-Xa, UFH(UnfractionatedHep 0.78 IU/ml (0.3-0.7)
[2024-02-22] MEDS: VITAMIN B COMPLEX TAB PO SCH (08:00)
[2024-02-22] MEDS ORDERED: BUMETANIDE 1 MG TAB PO SCH (09:00)
[2024-02-22] MEDS: LANTUS PER UNIT CHARGE SQ SCH (09:04)
--- NOTE | 2024-02-22 11:51 | Hospitalist Progress Note ---
Date of Service February 22, 2024 Assessment & Plan (1) Chest pain: (2) Hypertension: (3) Hyperlipidemia: (4) Insulin dependent type 2 diabetes mellitus: (5) CKD stage 3b, GFR 30-44 ml/min: (6) Rheumatoid arthritis: (7) Lupus anticoagulant disorder: (8) Morbid obesity with BMI of 40.0-44.9, adult: (9) Anxiety and depression: (10) Left foot drop: Plan 48-year-old male with past medical history of insulin-dependent type 2 diabetes mellitus, morbid obesity with BMI of 41, CKD stage III, hypertension, hyperlipidemia anxiety and depression, rheumatoid arthritis on prednisone, lupus anticoagulant with history of DVT on warfarin (as per patient he has failed apixaban and Xarelto in the past) who was brought in by his friend from [facility] for on and off chest pain for approximately 5 weeks mainly on exertion. #Chest pain #Essential hypertension #Hyperlipidemia #Cough CT chest did not show any evidence of fluid or infiltrate or consolidation Chest x-ray was unremarkable admission EKG shows no ischemic changes with normal sinus rhythm Telemetry shows sinus rhythm, no arrhythmias Troponin has been negative x 3 Lipase is 31 BNP is 34 Bio fire is negative 2D echo from 02/21/2024 shows mild concentric left ventricular hypertrophy, EF is 55 to 60%, left ventricular systolic function is normal. Borderline left atrial enlargement. No significant valvular heart disease noted. Lexiscan stress test done and showed no evidence of ischemia Continue metoprolol Continue statin Trial of albuterol inhaler to see if there is an element of bronchospasm #Insulin-dependent type 2 diabetes mellitus #Morbid obesity BMI is 41.1 A1c is 10.1 Lifestyle counseling regarding diet, exercise and weight loss provided Patient is currently meeting with a dietitian Pharmacy consult for glycemic management Monitor glycemic control #CKD stage IIIb Outpatient lab support tech Dr. Eng Renal function appears to be at baseline Monitor renal function electrolytes Avoid nephrotoxic agents including NSAIDs #Rheumatoid arthritis #History of lupus anticoagulant with history of DVT and PE Outpatient microsoft dynamics manager architect is Dr. Castro in [place] Patient tells me he was on Humira in the past and failed Humira and plan for rheumatology is to start him on Enbrel soon Continue on CellCept and prednisone 11 mg daily Continue PPI while patient is on steroids INR is 1.4: Patient states he is compliant with warfarin but his INR does fluctuate all over the place. Continue heparin infusion until INR is therapeutic: Patient not comfortable giving himself Lovenox shots Given respiratory symptoms, subtherapeutic INR and history of DVT and PE in the past self-reported with patient, will check bilateral lower extremity Dopplers for DVT and VQ scan to check for PE #Chronic left foot drop PT worked with patient and he is at his baseline and no further PT needs identified and he can return home. CODE STATUS: Discussed with patient, full code DVT prophylaxis: Patient on warfarin and heparin infusion Care plan discussed with patient and patient's friend Sarah updated on the phone with patient's permission Admission and Anticipated Discharge Date Admission Date: February 20, 2024 Subjective Patient seen and examined Labs, cardiac testing reviewed and discussed with patient Patient still complaining of chest discomfort with dry cough: He quit tobacco smoking in 2014 He denies any fever, chills, nausea, vomiting, abdominal pain Patient tells me that his INR in the past has gone down even on warfarin and INR seems to fluctuate quite a lot His friend Sarah is on the phone listening and with patient's permission Physical Exam Physical Exam: General: No acute distress, talking in full sentences Psych: Awake and alert, oriented to place person and time HEENT: Anicteric sclera, moist oral mucosa CVS: Regular rate and rhythm, no murmurs audible Lungs: Bilateral air entry, no wheezing noted, no use of accessory muscles noted Abdomen: Soft, nontender, obese, no rebound, no guarding Ext: No lower extremity edema, no calf tenderness, bilateral lower extremity chronic skin changes noted Neuro: No focal motor deficits noted Results & Data Results & Data Vital Signs (Past 12 Hours) Vital Signs Temp Pulse Pulse Resp BP Pulse Ox O2 Del Method 02/22/24 11:38 36.8 C 73 20 154/91 H 98 Room Air 02/22/24 08:15 36.5 C 66 20 120/82 96 Room Air 02/22/24 07:00 67 02/22/24 03:30 36.4 C L 64 18 132/77 97 Room Air Laboratory Results Laboratory Results - last 24 hr 02/21/24 02/21/24 02/21/24 14:34 16:17 17:17 WBC 7.23 RBC 4.53 L Hgb 13.9 L Hct 39.5 L MCV 87.2 MCH 30.7 MCHC 35.2 RDW Std Deviation 40.0 RDW Coeff of Juanjo 12.6 Plt Count 161 MPV 9.2 L Immature Gran % (Auto) 0.4 Neut % (Auto) 71.2 Lymph % (Auto) 22.5 Victoria % (Auto) 5.3 Eos % (Auto) 0.3 Baso % (Auto) 0.3 Neut # (Auto) 5.15 Lymph # (Auto) 1.63 Victoria # (Auto) 0.38 Eos # (Auto) 0.02 Baso # (Auto) 0.02 Immature Gran # (Auto) 0.03 PT 13.8 H INR 1.3 H APTT 25 PTT Ratio 0.9 Heparin Anti-Xa, Unfract Sodium Potassium Chloride Carbon Dioxide Anion Gap BUN Creatinine Est Cr Clr Drug Dosing eGFR BUN/Creatinine Ratio Glucose POC Glucose 129 H 211 H Calcium Magnesium 02/21/24 02/21/24 02/22/24 20:19 23:47 02:47 WBC RBC Hgb Hct MCV MCH MCHC RDW Std Deviation RDW Coeff of Juanjo Plt Count MPV Immature Gran % (Auto) Neut % (Auto) Lymph % (Auto) Victoria % (Auto) Eos % (Auto) Baso % (Auto) Neut # (Auto) Lymph # (Auto) Victoria # (Auto) Eos # (Auto) Baso # (Auto) Immature Gran # (Auto) PT INR APTT PTT Ratio Heparin Anti-Xa, Unfract 0.50 Sodium Potassium Chloride Carbon Dioxide Anion Gap BUN Creatinine Est Cr Clr Drug Dosing eGFR BUN/Creatinine Ratio Glucose POC Glucose 206 H 71 Calcium Magnesium 02/22/24 02/22/24 02/22/24 03:40 05:24 08:01 WBC 7.10 RBC 4.44 L Hgb 13.4 L Hct 38.8 L MCV 87.4 MCH 30.2 MCHC 34.5 RDW Std Deviation 39.8 RDW Coeff of Juanjo 12.4 Plt Count 147 MPV 9.0 L Immature Gran % (Auto) Neut % (Auto) Lymph % (Auto) Victoria % (Auto) Eos % (Auto) Baso % (Auto) Neut # (Auto) Lymph # (Auto) Victoria # (Auto) Eos # (Auto) Baso # (Auto) Immature Gran # (Auto) PT 14.6 H INR 1.4 H APTT PTT Ratio Heparin Anti-Xa, Unfract 0.78 H* Sodium 141 Potassium 3.9 Chloride 106 Carbon Dioxide 28 Anion Gap 7 BUN 26 H Creatinine 1.53 H Est Cr Clr Drug Dosing 81.9 eGFR 55.73 BUN/Creatinine Ratio 17.0 Glucose 116 H POC Glucose 105 H 119 H Calcium 8.7 Magnesium 2.2 PG Care Time/CCT Total # of Minutes Spent Total Time Spent with Patient: Total time spent is greater than 50% in coordination of care (as documented) at patient's floor/unit and/or counseling patient: Coding Level of Care Code 09305 SUB INP/OBS CARE 3/50MIN Diagnoses Chest pain R07.9 Chest pain type: unspecified Hypertension I10 Hyperlipidemia E78.5 Insulin dependent type 2 diabetes mellitus E11.9; Z79.4 CKD stage 3b, GFR 30-44 ml/min N18.32 Rheumatoid arthritis M06.9 Lupus anticoagulant disorder D68.62 Morbid obesity with BMI of 40.0-44.9, adult E66.01; Z68.41 Anxiety and depression F41.9; F32.A Left foot drop M21.372 (1) Chest pain Chest pain type: unspecified Qualified Code(s): R07.9 - Chest pain, unspecified
[2024-02-22] MEDS ORDERED: ALBUTEROL HFA 8 GM INHALER INH PRN (12:08)
[2024-02-22] MEDS: ALBUTEROL 0.083% NEBU SOLN 3 ML VIAL NEB STA (12:36)
--- NOTE | 2024-02-22 15:34 | Ultrasound Report ---
EXAM: US Duplex Bilateral Lower Extremities Veins INDICATION: Patient on blood thinners for reported left DVT. TECHNIQUE: Real-time duplex ultrasound scan of the bilateral lower extremity veins integrating B-mode two-dimensional vascular structure, Doppler spectral analysis, color flow Doppler imaging and compression. COMPARISON: No relevant prior studies available. FINDINGS: Right deep veins: No DVT in the right common femoral, femoral or popliteal veins. The veins demonstrate normal color flow, are normally compressible, with normal phasic flow and/or augmentation response. Right superficial veins: No abnormality noted. No thrombus in the visualized right great saphenous vein. Left deep veins: Duplicated left popliteal veins 1 of which is occluded. Left common femoral, femoral and calf veins are patent with normal color and Doppler flow, compressibility and augmentation. Left superficial veins: No abnormality noted. No thrombus in the visualized left great saphenous vein. Soft tissues: No abnormality noted. IMPRESSION: 1. Age-indeterminate deep venous thrombosis of one of the left duplicated popliteal veins. 2. No deep venous thrombosis of the right lower extremity. ACT 112: Negative or not required by law. Electronically signed by Brittni James 02-22-2024 3:33 PM
[2024-02-22 16:01] LABS: ANTI-Xa, UFH(UnfractionatedHep 0.71 IU/ml (0.3-0.7)
[2024-02-22] MEDS: BENZONATATE 100 MG CAPSULE PO PRN (17:38)
[2024-02-22] MEDS: ALBUTEROL HFA 8 GM INHALER INH SCH (19:25)
[2024-02-22] MEDS: LANTUS PER UNIT CHARGE SQ ONE (20:18)
[2024-02-22 23:30] LABS: ANTI-Xa, UFH(UnfractionatedHep 0.58 IU/ml (0.3-0.7)
[2024-02-23 07:31] LABS: Basophils # (auto) 0.03 K/uL (0.00-0.20); Basophils % (auto) 0.4 %; Eosinophils # (auto) 0.09 K/uL (0.00-0.50); Eosinophils % (auto) 1.2 %; Hematocrit (blood only) 38.2 % (42.0-52.0); Hemoglobin 13.2 g/dl (14.0-18.0); Immature Granulocytes # (auto) 0.05 K/uL (0.01-0.20); Immature Granulocytes % (auto) 0.7 %; Lymphocytes # (auto) 2.59 K/uL (1.20-3.40); Lymphocytes % (auto) 34.8 %; Mean Corpuscular Hemoglobin 30.1 pg (25.0-34.0); Mean Corpuscular Hgb Conc 34.6 g/dL (32.0-36.0); Mean Corpuscular Volume 87.2 fL (80.0-100.0); Mean Platelet Volume 9.3 fL (9.4-12.4); Monocytes # (auto) 0.69 K/uL (0.11-0.59); Monocytes % (auto) 9.3 %; Neutrophils % (auto) 53.6 %; Platelet Count 150 K/uL (130-400); RDW Coefficient of Variation 12.5 % (11.5-14.5); RDW Standard Deviation 39.8 fL (36.4-46.3); Red Blood Count 4.38 M/uL (4.70-6.10); White Blood Count 7.45 K/ul (4.8-10.8)
[2024-02-23 07:48] LABS: Albumin Level 3.6 gm/dl (3.4-5.0); BUN Creatinine Ratio 12.9 (10-20); Bilirubin,Total 0.5 mg/dl (0.2-1.0); Calcium 8.3 mg/dl (8.6-10.3); Creatinine Clr Calc Pharmacy 85.3 ml/min; Globulin 1.8 gm/dl (2.5-4.0); Magnesium 2.1 mg/dl (1.7-2.4); Potassium 4.1 mmol/L (3.5-5.1); Total Protein 5.4 gm/dl (6.0-8.3)
[2024-02-23 08:12] LABS: INR 2.7 (0.9-1.1); Prothrombin Time 26.4 Seconds (9.0-12.0)
--- NOTE | 2024-02-23 09:37 | Pharmacy Report ---
Pharmacy Glycemic Short Note 2 - Date of Service February 23, 2024 - Glycemic Short BSG Results (Last 24 hours): 02/22/24 02/22/24 02/22/24 11:58 16:53 20:07 Glucose POC Glucose 221 H 138 H 126 H 02/23/24 02/23/24 07:12 08:11 Glucose 140 H POC Glucose 151 H OUTPATIENT ANTIDIABETIC REGIMEN: * Lantus 50 units SC BID * Humalog 6-12 units SC TIDM HbA1c: 10.1% (02/21/24) ASSESSMENT: 02/23/24: * Blood sugars reasonably controlled w/ hyperglycemia at lunchtime yesterday * Novolog carb ratio tightened yesterday * Received 80 units of insulin (50/50 basal/bolus split) * Fasting blood sugar of 151 mg/dl this morning * Heparin gtt (mixed in dextrose) discontinued today * Possible discharge today 02/21/24: * RY is a 48 year old male who presented to ED on 02/19 w/ chest pain x 5 weeks on exertion * NPO this morning for stress test. Diet ordered this afternoon. * Blood sugars elevated on presentation, but much improved today w/ 25 units of basal last evening * Will use scaled dose of basal today given uncertainty in insulin needs PLAN FOR INPATIENT GLYCEMIC CONTROL: * Hold outpatient oral diabetes medications * Basal insulin * Lantus 25 units SC daily * Lantus 15-20-25 units SC HS (see EHR for details) * Bolus insulin * NovoLog per scale ACHS or Q6hrs while NPO * Goal Range: Low 110 mg/dL - High 140 mg/dL * Correction Factor: 15 mg/dL/unit * Nutritional / Prandial insulin per carb ratio of 1 unit per 5 grams CHO consumed
[2024-02-23 11:27] VITALS: TEMP 99.5
[2024-02-23 12:58] VITALS: RESP 16; O2SAT 97
[2024-02-23 14:05] VITALS: BP 147/89
[2024-02-23 15:37] VITALS: PULSE 81
--- NOTE | 2024-02-23 16:50 | Hospitalist Progress Note ---
Date of Service February 23, 2024 Assessment & Plan (1) Chest pain: Plan: unclear etiology, did have negative non treadmill nuclear stress cannot get isotope for V/Q till next week elevated Cr makes concern for CTA and since will be chronically anticoagulated with warfarin ( eventually Eliquis if approved for pharmaceutical assistance) will not pursue non con CT chest without abnormalities to explain discomfort as is on full AC due to history of recurrent VTE 2 doses of 10 mg warfarin has INR 2.7 will reduce to 6 mg( takes 5 mg as outpt) (2) Insulin dependent type 2 diabetes mellitus: Plan: Insulin-dependent type 2 diabetes mellitus Morbid obesity BMI is 41.1 A1c is 10.1 Lifestyle counseling regarding diet, exercise and weight loss provided Patient is currently meeting with a dietitian Pharmacy consult for glycemic management Monitor glycemic control (3) CKD stage 3b, GFR 30-44 ml/min: Plan: CKD stage IIIb Outpatient retail selling specialist Dr. Eng (4) Rheumatoid arthritis: Plan: Rheumatoid arthritis History of lupus anticoagulant with history of DVT and PE Outpatient international tax manager is Dr. Castro in [place], [place] Patient tells me he was on Humira in the past and failed Humira and plan for rheumatology is to start him on Enbrel soon Continue on CellCept and prednisone 11 mg daily Continue PPI while patient is on steroids (5) Morbid obesity with BMI of 40.0-44.9, adult: (6) Anxiety and depression: (7) Left foot drop: Plan 48-year-old male with past medical history of insulin-dependent type 2 diabetes mellitus, morbid obesity with BMI of 41, CKD stage III, hypertension, hyperlipidemia anxiety and depression, rheumatoid arthritis on prednisone, lupus anticoagulant with history of DVT on warfarin (as per patient he has failed apixaban and Xarelto in the past) who was brought in by his friend from [facility] for on and off chest pain for approximately 5 weeks mainly on exertion. Chronic left foot drop PT worked with patient and he is at his baseline and no further PT needs identified and he can return home. CODE STATUS: Discussed with patient, full code Admission and Anticipated Discharge Date Admission Date: February 22, 2024 Subjective pt still with some vague chest discomfort, mild sob with exertion non productive cough chronic venous stasis discoloring to lower extremities Physical Exam Physical Exam: lungs are clear cardiac is regular abd is soft and non tender ext with mild edema and chronic skin changes Results & Data Results & Data Vital Signs (Past 12 Hours) Vital Signs Temp Pulse Pulse Pulse Resp BP BP 02/23/24 15:00 81 02/23/24 13:55 99.5 F 79 77 16 147/89 H 117/75 02/23/24 12:57 77 16 02/23/24 11:26 99.5 F 76 20 117/75 02/23/24 08:01 97.7 F 75 16 123/81 02/23/24 06:55 74 Pulse Ox O2 Del Method 02/23/24 15:00 02/23/24 13:55 97 02/23/24 12:57 97 Room Air 02/23/24 11:26 98 Room Air 02/23/24 08:01 97 Room Air 02/23/24 06:55 Laboratory Results review cbc review chemistry review coagulation studies PG Care Time/CCT Total # of Minutes Spent Total Time Spent with Patient: Total time spent is greater than 50% in coordination of care (as documented) at patient's floor/unit and/or counseling patient: Coding Level of Care Code 30114 SUB INP/OBS CARE 3/50MIN Diagnoses Chest pain R07.9 Chest pain type: unspecified Insulin dependent type 2 diabetes mellitus E11.9; Z79.4 CKD stage 3b, GFR 30-44 ml/min N18.32 Rheumatoid arthritis M06.9 Morbid obesity with BMI of 40.0-44.9, adult E66.01; Z68.41 Anxiety and depression F41.9; F32.A Left foot drop M21.372 (1) Chest pain Chest pain type: unspecified Qualified Code(s): R07.9 - Chest pain, unspecified
[2024-02-23] MEDS: WARFARIN SOD 6 MG TAB PO ONE (17:34)
[2024-02-23] MEDS ORDERED: LANTUS PER UNIT CHARGE SQ SCH (21:00)
[2024-02-24] MEDS ORDERED: WARFARIN SOD 6 MG TAB PO SCH (16:00)
--- NOTE | 2024-02-28 08:57 | Discharge Summary ---
Discharge Summary Date of Service February 28, 2024 Principal Dx & Hospital Course #1 = Principal Diagnosis (1) Chest pain: unclear etiology, did have negative non treadmill nuclear stress cannot get isotope for V/Q till next week elevated Cr makes concern for CTA and since will be chronically anticoagulated with warfarin ( eventually Eliquis if approved for pharmaceutical assistance) will not pursue non con CT chest without abnormalities to explain discomfort as is on full AC due to history of recurrent VTE 2 doses of 10 mg warfarin has INR 2.7 will reduce to 6 mg( takes 5 mg as outpt) (2) Insulin dependent type 2 diabetes mellitus: Insulin-dependent type 2 diabetes mellitus Morbid obesity BMI is 41.1 A1c is 10.1 Lifestyle counseling regarding diet, exercise and weight loss provided Patient is currently meeting with a dietitian (3) CKD stage 3b, GFR 30-44 ml/min: CKD stage IIIb Outpatient clerical investigator Dr. Eng (4) Rheumatoid arthritis: Rheumatoid arthritis History of lupus anticoagulant with history of DVT and PE Outpatient tool and die technician is Dr. Castro in [place], [place] Patient tells me he was on Humira in the past and failed Humira and plan for rheumatology is to start him on Enbrel soon Continue on CellCept and prednisone 11 mg daily Continue PPI while patient is on steroids (5) Morbid obesity with BMI of 40.0-44.9, adult: (6) Anxiety and depression: (7) Left foot drop: Plan 48-year-old male with past medical history of insulin-dependent type 2 diabetes mellitus, morbid obesity with BMI of 41, CKD stage III, hypertension, hyperlipidemia anxiety and depression, rheumatoid arthritis on prednisone, lupus anticoagulant with history of DVT on warfarin (as per patient he has failed apixaban and Xarelto in the past) who was brought in by his friend from [facility] for on and off chest pain for approximately 5 weeks mainly on exertion. Chronic left foot drop PT worked with patient and he is at his baseline and no further PT needs identified and he can return home. CODE STATUS: Discussed with patient, full code Admission HPI Per Admitting Provider 48-year-old male with past medical history of insulin-dependent type 2 diabetes mellitus, morbid obesity with BMI of 41, CKD stage III, hypertension, hyperlipidemia anxiety and depression, rheumatoid arthritis on prednisone, lupus anticoagulant with history of DVT on warfarin (as per patient he has failed apixaban and Xarelto in the past) who was brought in by his friend from [facility] for on and off chest pain for approximately 5 weeks. Patient states he is not getting good care in his local area and his friend drove him 85 miles to come here. He has been having on and off chest pains, he is unable to see his local chairman & chief executive officer and also has had a cough for about 5 weeks, dry with associated shortness of breath. Patient states he is compliant with his medications. Medications were reviewed with the patient who has a list with him. He denies any headache, dizziness, lightheadedness, nausea, vomiting, diarrhea, abdominal pain, constipation issues. He has abdominal wall tenderness from coughing. He denies any urinary symptoms including dysuria. He denies any fever, chills. Patient reports a 40 pound weight gain in about a month. He admits to not watching what he eats. Patient tells me he is very compliant with his warfarin and his last INR few da ys ago was 2.9. Patient does admit that his A1c has been greater than 11 ED course: He had an EKG done which showed normal sinus rhythm, no ischemic changes noted. Troponin was 5.9. Creatinine of 1.78. Glucose of 299, urine analysis was negative. Patient had a CT of the chest which did not show any acute cardiopulmonary pathology. He also had a CT abdomen pelvis which was negative. Chest x-ray also was negative Patient was given aspirin 324 mg x 1 dose in ED Hospitalist service was called for admission for chest pain Social history: Patient lives by himself. He has a chronic left foot drop and he ambulates sometimes with a cane and has a brace on his left foot. He quit tobacco smoking in 2014. He drinks about 2 drinks of alcohol once a year. He denies any illegal or IV drug use. He is currently on disability. 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 Patient states his mother at the age of 67 from complications of coronary artery disease and also had a seizure disorder. Home medications: Reviewed with patient and are as follows Aspirin 81 mg p.o. daily Atorvastatin 40 mg p.o. daily Bumex 2 mg p.o. daily Bupropion XL 300 mg p.o. daily Cholecalciferol 5000 units p.o. daily Humalog subcutaneous 3 times a day before meals for 6 sliding scale Insulin glargine 50 units subcutaneous twice daily Lamictal 100 mg p.o. daily Metoprolol tartrate 100 mg p.o. daily CellCept 1 tablet p.o. daily Protonix 40 mg p.o. daily Prednisone 11 mg p.o. daily Warfarin 5 mg p.o. daily Allergies reviewed with patient: Tramadol, metformin, amlodipine, penicillin V, Mobic, Levaquin, tape, losartan Discharge Exam pt was seen on day of discharge by Dr Resendez Discharge Plan Discharge Items Patient Disposition: Home - Self-Care Reason For Visit: CHEST PAIN Discharge Diagnosis: non cardiac chest pain Activity: Per Instructions section Non-emergency contact: Primary Care Provider Call non-emergency contact if: your symptoms worsen Follow-up/Referrals: Ryann Wallace PA-C [Primary Care Provider] - (PLEASE CALL YOUR PRIMARY CARE PROVIDER TO SCHEDULE A HOSPITAL DISCHARGE FOLLOW-UP APPOINTMENT WITHIN 7-10 DAYS.) Diet: Heart Healthy Addtl Attending Provider Instructions: you did have a favorable stress test indicating low suspicion for the discomfort being from your heart blood supply Ct scan of chest and abdomen, did show some arthritic changes in your thoracic spine but nothing else to be associated with your shortness of breath or discomfort Please follow up with a blood test to check your coumadin level 2 days after your discharge and contact your primary care for follow up in one week Addtl Oracle Applications Analyst Provider Instructions: at the time of discharge take 6 mg of Coumadin, that will be a 5 mg plus a one mg, daily Future dosing will be as directed by your primary care after you have outpt blood work Pending Studies at Discharge: No Stand-Alone Forms: My [facility], Smoking Cessation Medications and DC Order Prescriptions: New warfarin 1 mg tablet 1 mg PO UD Qty: 60 0RF Rx Instructions: take as directed Continued buspirone 5 mg tablet 5 mg PO DIRECTED atorvastatin 80 mg tablet 80 mg PO DAILY prednisone 10 mg tablet 10 mg PO QAM Rx Instructions: take with 1 mg for total dose of 11 mg daily lamotrigine 200 mg tablet 200 mg PO DAILY spironolactone 25 mg tablet 25 mg PO DAILY prednisone 1 mg tablet 1 mg PO QAM Rx Instructions: take with 10 mg for total dose of 11 mg daily pantoprazole 40 mg tablet,delayed release (DR/EC) 40 mg PO DAILY cyanocobalamin (vitamin B-12) 1,000 mcg/mL solution 1,000 mcg IM DIRECTED metoprolol succinate 25 mg tablet extended release 24 hr 25 mg PO DAILY calcitriol 0.25 mcg capsule 0.25 mcg PO DAILY insulin lispro [Humalog KwikPen Insulin] 100 unit/mL insulin pen 1 sliding scale dose SUBCUT TID bupropion HCl 300 mg tablet extended release 24 hr 300 mg PO DAILY insulin glargine [Lantus Solostar U-100 Insulin] 100 unit/mL (3 mL) insulin pen 50 unit subcut BID lurasidone [Latuda] 20 mg tablet 20 mg PO DAILY insulin degludec [Tresiba FlexTouch U-100] 100 unit/mL (3 mL) insulin pen 30 unit SUBCUT BID bumetanide 2 mg tablet 2 mg PO BID bumetanide 1 mg tablet 1 mg PO UD PRN (Reason: Other) Rx Instructions: Take 1 tab po daily if needed along with 2 mg for total dose of 3 mg for 3 days warfarin 5 mg tablet 5 mg PO DIRECTED Qty: 0 0RF Rx Instructions: take as directed by primary care Discontinued doxycycline hyclate 100 mg tablet 100 mg PO BID Discharge Orders: Discharge Order (Routine); Ordered 02/23/24 Ordered By: Allan Chambers Admission Data Admit Date/Time: 02/22/24 16:08 Attending Provider: Tati Resendez Admit Provider: Alvin Dumont Primary Care Provider: Ryann Wallace Other Interventions: Discharge Summary Assessment (RN) Last Done: 02/23/24 13:55 Hospital Stay Data Consultations 02/20/24 17:28 ED Decision to Admit Stat Diagnostic Imagining Performed 02/20/24 15:45 CT abd pelvis wo con Stat CT chest diagnostic wo con Stat 02/22/24 12:04 US venous doppler LE BI Urgent Pending Results Patient Have Any Pending Studies at Discharge: No Discharge Instructions Given to Patient (Per Discharging Provider) you did have a favorable stress test indicating low suspicion for the discomfort being from your heart blood supply Ct scan of chest and abdomen, did show some arthritic changes in your thoracic spine but nothing else to be associated with your shortness of breath or discomfort Please follow up with a blood test to check your coumadin level 2 days after your discharge and contact your primary care for follow up in one week Total Time Total Time Spent Total Time Spent (In Minutes): disharge time less than 30 mintues Coding Level of Care Code 64204 IN/OBS DISCH 30 MIN/LESS Diagnoses Chest pain R07.9 Chest pain type: unspecified Insulin dependent type 2 diabetes mellitus E11.9; Z79.4 CKD stage 3b, GFR 30-44 ml/min N18.32 Rheumatoid arthritis M06.9 Morbid obesity with BMI of 40.0-44.9, adult E66.01; Z68.41 Anxiety and depression F41.9; F32.A Left foot drop M21.372
== END 2024-02-23 19:15 | disposition home or self-care (01) | DRG 313 ==
LOC: 2W 14:23 → ED 14:23 → 2W 20:19 → SUATTDRO 02-22 16:08